=== PATIENT | male | born 1950 | race Caucasian/White ===

== ENCOUNTER 2016-06-28 11:14 | Inpatient (IN) | payer MEDICARE, BC ==
--- NOTE | ~2016-06-28 | DS ---
Discharge Summary [facility] [address] [place]. [address] NAME: WOODROW LOVETT : 46 STATUS : DIS IN PAT#: [id number] AGE: 65 ADM/REG DATE : 06/29/16 MR#: [id number] REPORT SERV DATE: 07/02/16 DICTATED BY: CHACHO PERRY DATE: 07/01/16 REPORT STATUS : Draft TRANSCRIBED BY: ROSINA DATE: 07/01/16 ADMISSION DATE: 06/29/2016 DISCHARGE DATE: 07/01/2016 DISCHARGE DIAGNOSES: 1. High-grade AV block status post pacemaker. 2. Hypertension. 3. Hyperlipidemia. 4. History of prostate cancer. 5. Rosacea. HOME MEDICATIONS: 1. Norvasc 10 mg p.o. daily. 2. Zetia 10 mg p.o. at bedtime. 3. Singulair 10 mg p.o. daily. 4. Prilosec 40 mg p.o. at bedtime. 5. Lisinopril 10 mg p.o. daily. 6. Magnesium p.o. daily. 7. Protandim p.o. daily. 8. Ibuprofen 400 mg p.o. b.i.d. p.r.n. 9. Tylenol 500 mg p.o. b.i.d. p.r.n. 10.Flonase spray nasally p.r.n. 11.Probiotic capsule at bedtime. 12.Minocycline 50 mg p.o. daily. 13.Bionect Foam 0.2% apply topically daily p.r.n. DISPOSITION AND FOLLOWUP: The patient medically stable for discharge. Follow up with primary care physician in one week. Follow up with Cardiology as directed. HISTORY AND PHYSICAL: Per initial assessment. Discharge Vitals: Temperature 98.8, heart rate 63, blood pressure 128/78, respiratory rate 20, and O2 saturation 98 on room air. DISCHARGE LABS: WBC of 8, hemoglobin 15.5, hematocrit 44.1, and platelets 198. Sodium 139, potassium 4.3, chloride 106, bicarb 24, BUN 13, creatinine 0.78, and glucose 95. TSH 1.04. IMAGING: CT of the head without contrast. Impression: Negative noncontrast CT of the brain. Chest x-ray. Impression: One pacing device in place with no acute process demonstrated radiographically. Echocardiogram. Impression: Normal left ventricle systolic function with an estimated ejection fraction of 60%. Mild diastolic dysfunction. Right ventricle is mildly enlarged with normal systolic function. Mild pulmonary hypertension. Trace late diastolic MR/TR positive suggestive of AV dyssynchrony. Septal bounce suggestive of interventricular Discharge Summary [place] [id number] [place]. [address] NAME: WOODROW LOVETT : 48 STATUS : DIS IN PAT#: [id number] AGE: 65 ADM/REG DATE : 06/29/16 MR#: [id number] REPORT SERV DATE: 07/02/16 DICTATED BY: CHACHO PERRY DATE: 07/01/16 REPORT STATUS : Draft TRANSCRIBED BY: ROSINA DATE: 07/01/16 conduction delay. No wall motion abnormalities. No pericardial effusion. No evidence of pleural effusion. Hypermobile interatrial septum. HOSPITAL COURSE: This is a 65-year-old man with past medical history of hypertension and hyperlipidemia, comes into the ED complaining of dizziness. The patient was noticed to have significant bradycardia in the emergency room. The patient was admitted for further evaluation. Cardiology was consulted. The patient was noted to have high-grade AV block. The patient did have echo as described above. More details per Cardiology consult note and procedure. The patient did have a pacemaker placed without any complications. Responded well. On day of discharge, no evidence of pneumothorax. Chest x-ray, as described above. The patient medically stable for discharge. Vitals stable. The patient will be placed on Norvasc for blood pressure control with his JERAMIE inhibitor. Followup with primary care physician to recheck BP. Further management as an outpatient. Follow up with Cardiology as directed. Total time for DC planning 35 minutes. NOMI/ROSINA Martine Stewart MD / [id number] CC: MD Oscar Collins M.D.
--- NOTE | ~2016-06-28 | CN ---
Consultation Report [facility] [address] [place]. 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 On the EKG, he has AV dissociation with junctional escape rhythm and right bundle branch block pattern. Presently, he has PAC bigeminy with a minute ventricular rate of 45 per minute. He has no history of true syncope and has no TIA or stroke symptoms. He denies any chest pain, PND, or orthopnea. There are no historical events of TIA or stroke. He has a family history of hypertension and hypercholesterolemia. MEDICATIONS: At home have included Zetia for hypercholesterolemia, minocycline for rosacea, Nexium, Singulair for some allergy issues, and lisinopril for hypertension. He is not known to be diabetic. PREVIOUS OPERATIONS: Include his prostate cancer with prostatectomy by Dr. Keith and 2 hernia repairs. This gentleman is single now and has 2 sons one of whom has Crohn disease and the other one has Peter's syndrome who lives with his mother. At the present time, he is comfortable having no chest pain or shortness of breath. He had been told at one time that he had a heart murmur but does not recall ever having had an echocardiogram. Thyroid function tests are pending. LABORATORY DATA: So far includes white blood cell count 10,000, hematocrit 48%, and platelet count 259,000. BUN 16, creatinine 1.15, and blood sugar 141 mg percent. Troponin is 0.02. Chest x-ray was read as unremarkable in the emergency room. PHYSICAL EXAMINATION: VITAL SIGNS: The blood pressure 160/65 tonight but higher earlier. HEENT: Head is normocephalic. Eyes are PERRLA. Nose had no epistaxis. SKIN: Clear of ulcerations. NECK: Supple. CHEST: Clear. Good breath sounds. Absence of rales, rhonchi, or wheezes. HEART: Had regular slow rate with PAC bigeminy on the monitor. There is a grade 1 to 2 over 6 systolic murmur heard best at the left sternal border but also heard at the base. No diastolic murmurs are appreciated. There is no S3 gallop. I hear no pericardial rub. ABDOMEN: Benign and nontender. No hepatosplenomegaly or abnormal masses. EXTREMITIES: Had no clubbing, edema, or cyanosis. Pulses in the extremities are intact. NEUROLOGIC: Intact. He is oriented to time, place, and person. Consultation Report [place] [id number] [facility] [place]. [address] NAME: WOODROW LOVETT : 46 STATUS : ADM Ozzy PAT#: [id number] AGE: 65 ADM/REG DATE : 06/28/16 MR#: [id number] REPORT SERV DATE: 06/29/16 DICTATED BY: ZACARIAS CERVANTES DATE: 06/28/16 REPORT STATUS : Draft TRANSCRIBED BY: ROSINA DATE: 06/28/16 IMPRESSION: 1. Dizziness-has some orthostatic features but blood pressure is high here in the emergency room. I suspect secondary to #2. 2. Atrioventricular dissociation with junctional escape rhythm in a right bundle branch block pattern; now with PAC bigeminy with overall ventricular bradycardia at 45 beats per minute-presently asymptomatic. 3. Systolic murmur. 4. History of prostate cancer. 5. Hypertension. 6. History of hyperlipoproteinemia. 7. History of rosacea. RECOMMENDATIONS: 1. Blood pressure control. 2. We will check an echocardiogram. 3. Thyroid function tests. 4. We will continue to monitor him to see if he might be a candidate for pacing. RB/ROSINA Zacarias Cervantes M.D. / [id number] CC: Keron Ayala Jr, MD
--- NOTE | ~2016-06-28 | HP ---
History And Physical [place] [id number] [facility] [place]. [address] NAME: WOODROW LOVETT : 46 STATUS : ADM Ozzy PAT#: [id number] AGE: 65 ADM/REG DATE : 06/28/16 MR#: [id number] REPORT SERV DATE: 06/29/16 DICTATED BY: DENISSE CROWLEY DATE: 06/28/16 REPORT STATUS : Draft TRANSCRIBED BY: ROSINA DATE: 06/28/16 DATE OF ADMISSION: 06/28/2016 CHIEF COMPLAINT: Dizziness. HISTORY OF PRESENT ILLNESS: This is a 65 years old male with a past medical history of hypertension and hyperlipidemia, who states over the past three to five days, has had intermittent achiness. He denies any vertigo. However today, his dizziness had progressed while he was at work. He denied any chest pain. No shortness of breath. No nausea or vomiting. No diarrhea. No constipation. He does suffer from some nasal congestion and currently has been placed on Flonase and Singulair, which is slightly new, recommended by primary care physician. The patient states he exercises daily with jessa chi for about 30 minutes a day and also ambulates daily for exercise. He had moderate intake for fluid intake. He denies any subjective fever or chills. No cough. No shortness of breath. Was seen in the ER by Dr. Muro, who ordered a CT of the brain that was nondiagnostic, and also called the hospitalist to admit the patient into the hospital. Also, the patient was found to have some sinus bradycardia while in the ER in the upper 30s to 50. The patient states that he does have chronic bradycardia, but mostly 50 to 60 usually at his primary care's office. The patient states that he recently restarted his minocycline for his rosacea treatment and later developed dizziness. REVIEW OF SYSTEMS: Please see HPI. PAST MEDICAL HISTORY: Hypertension, prostate cancer status post prostatectomy, hyperlipidemia, rosacea, and GERD. PAST SURGICAL HISTORY: Bilateral inguinal hernia, tonsillectomy, prostatectomy, and skin cancer removal. FAMILY HISTORY: Father with prostate cancer. Mother with skin cancer. Hypertension. SOCIAL HISTORY: Quit tobacco abuse 35 to 40 years ago. Smoked for approximately seven-pack history. Drinks one glass of wine a day. No illicit drugs. Very active. Exercises daily. 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 ALLERGIES: ERYTHROMYCIN AND MUSHROOMS. HOME MEDICATIONS: Tylenol p.r.n., Zetia 10 mg p.o. q.h.s., Flonase daily, ibuprofen p.r.n., lisinopril 10 mg p.o. daily, minocycline 50 mg p.o. daily, probiotic p.o. daily, Prilosec 40 mg p.o. q.h.s., Singulair 10 mg p.o. q.h.s., magnesium one tab p.o. daily, Protandim herbal one cap p.o. daily, and Bionect topical p.r.n. PHYSICAL EXAMINATION: VITAL SIGNS: Initial temp of 97.8; initial blood pressure was 184/83, currently 149/62; initial pulse per nurse ranging 35 to 50, but currently, ranging 48 to 52, respirations of History And Physical [address] [address] NAME: WOODROW LOVETT : 46 STATUS : ADM Ozzy PAT#: [id number] AGE: 65 ADM/REG DATE : 06/28/16 MR#: [id number] REPORT SERV DATE: 06/29/16 DICTATED BY: DENISSE CROWLEY DATE: 06/28/16 REPORT STATUS : Draft TRANSCRIBED BY: ROSINA DATE: 06/28/16 15, saturating 100% on room air. GENERAL: The patient is alert and oriented x3, but in no distress, very pleasant, well nourished, lean. HEENT: Pupils equal, round, and reactive to light. Extraocular muscles are intact. Moist mucous membranes. Anicteric sclerae. CARDIOVASCULAR: S1, S2. Bradycardic. No appreciated rubs or gallops. RESPIRATORY: Clear to auscultation bilaterally. No wheezes or crackles. No signs of tachypnea. ABDOMEN: Positive bowel sounds. Soft, nontender. No rebound. No fluid wave. No distention. EXTREMITIES: 2+ pulse bilaterally. No edema. NEURO: Cranial nerves 2 through 12 grossly intact. Moves all four extremities. No neuro focal deficits. EKG: Sinus bradycardia with a ventricular rate of 51 with PVC and first-degree AV block. LABORATORY DATA: Sodium 137, potassium 3.9 with a chloride of 103, bicarb of 21, BUN of 16, creatinine of 1.15 elevated from baseline with a baseline of 0.6 to 0.8, glucose of 141, magnesium 1.9. White count of 10, hemoglobin of 16.9 with a platelet count 259. UA negative. INR 1.1. ASSESSMENT AND PLAN: 1. Sinus bradycardia with dizziness. 2. Mild acute kidney injury with mild hypovolemia. 3. Hypertension. We will admit under observation. Cardiology has already been consulted to assist with the patient's care. We will check a TSH. Also, the patient may benefit from an outpatient sleep study if needed to rule out any underlying sleep apnea. However, we will await Cardiology recommendations an evaluation. Also, we will give low-dose IV fluids for mild hypovolemia and also blood pressure management. This patient will be followed by my colleague with the Hospitalist Service starting tomorrow, 06/29/2016. TAWANA/MODL Denisse Crowley M.D. / [id number] CC: Keron Ayala Jr, MD Richard Forrest Sowell, M.D.
--- NOTE | ~2016-06-28 | CN ---
Consultation Report [facility] [address] [place]. [address] NAME: CHAD NIÑO : 46 STATUS : ADM IN PAT#: [id number] AGE: 65 ADM/REG DATE : 06/29/16 MR#: [id number] REPORT SERV DATE: 06/30/16 DICTATED BY: DA PEDERSON DATE: 06/30/16 REPORT STATUS : Draft TRANSCRIBED BY: MODL DATE: 06/30/16 ELECTROPHYSIOLOGY CONSULTATION DATE OF CONSULTATION: 06/30/2016 INDICATIONS: Symptomatic second-degree AV block. HISTORY OF PRESENT ILLNESS: Mr. Chad Niño is a very pleasant, 65-year-old male, who was admitted through the emergency room on 06/28/2016. He presented there with dizziness, elevated blood pressure, and bradycardia. That evening, he had an ECG that demonstrated 2:1 AV block. He was seen by Cardiology. He has had telemetry that demonstrates 2:1 AV block. Echocardiogram is obtained that shows normal LV systolic function without significant heart valve disease. Electrophysiology is consulted for consideration of pacemaker patient is on no AV francisco active medications. He has not had adri syncope. No orthopnea, PND, or chest pain. PAST MEDICAL HISTORY: Hypercholesterolemia, hypertension, rosacea, and history of prostatectomy. HOME MEDICATIONS: Zetia, Tylenol, Flonase, Advil, Prinivil, minocycline, Singulair, Prilosec, and magnesium. ALLERGIES: ERYTHROMYCIN AND MUSHROOMS, BOTH WHICH CAUSE DIARRHEA. SOCIAL HISTORY: Single. No smoking but he has smoked in the past. Former contractor. REVIEW OF SYSTEMS: As per the HPI. Otherwise, all review of systems negative. Chest x-ray from the ER report is no acute process. Electrocardiogram is sinus rhythm with 2:1 AV block with a right bundle-branch block pattern. PHYSICAL EXAMINATION: VITAL SIGNS: Blood pressure 116/61, temperature 98.0, heart rates between 34 and 45, and respiratory rate is 18. GENERAL: Appears stated age, no distress. EYES: Sclerae anicteric, no arcus senilis. MOUTH: Oral mucosa moist, lips acyanotic. NECK: Jugular venous pressure normal, no carotid bruits. LUNGS: Clear to auscultation bilaterally, normal inspiratory effort. CARDIAC: Regular rhythm, bradycardic. 2/6 systolic ejection murmurs. No gallops or rubs. ABDOMEN: Soft, nondistended, nontender. Consultation Report [facility] [address] [place]. [address] NAME: CHAD NIÑO : 46 STATUS : ADM IN PAT#: [id number] AGE: 65 ADM/REG DATE : 06/29/16 MR#: [id number] REPORT SERV DATE: 06/30/16 DICTATED BY: DA PEDERSON DATE: 06/30/16 REPORT STATUS : Draft TRANSCRIBED BY: MODAbdirizak DATE: 06/30/16 EXTREMITIES: No edema. SKIN: Warm and dry. NEURO/PSYCH: Alert and oriented, nonfocal, mood appropriate. LABORATORY DATA: Sodium is 141, potassium 4.2, creatinine 0.85, hemoglobin 16, white count 10, platelets 259, and TSH 1.04. IMPRESSION: 1. Symptomatic second-degree AV block. 2. Hypertension. 3. Murmur without significant valvular disease. RECOMMENDATIONS: Plan to proceed with implantation of a dual-chamber pacemaker. I have discussed with the patient the rationale, logistics, and risks of the procedure. Risks include, but not limited to bleeding, infection, vascular complications failure to place the lead, lead dislodgement, pneumothorax. All questions were answered. The patient wished to proceed. NADEGE/ROSINA Da Pederson M.D. / [id number] CC: MD Oscar Collins M.D.
[~2016-06-28 11:14] MED LIST: ACET500CAP PO; CIALIS2.5 MG PO; FLOMAX4 PO; MINOCIN50 PO; MULTIVITAMI1 PO; NEXIUM40 PO; PRIN10 PO; SINGULAIR1 PO; ZETIA PO; ZYRTEC ALLGY10 MG PO
[2016-06-28 11:38] LABS: BASOPHILS 0.2 %; BASOPHILS ABSOLUTE 0.02 10/3/uL (0.0-0.16); EOSINOPHILS 0.2 %; EOSINOPHILS ABSOLUTE 0.02 10/3/uL (0.0-0.53); HEMOGLOBIN 16.9 g/dL (13.6-17.8); IMMATURE GRANULOCYTES 0.2 %; IMMATURE GRANULOCYTES ABSOLUTE 0.02 10/3/uL (0.0-0.11); LYMPHOCYTES 13.4 %; LYMPHOCYTES ABSOLUTE 1.34 10/3/uL (0.67-4.30); MEAN CORPUSCULAR HEMOGLOB 33.6 pg (26.0-34.0); MEAN CORPUSCULAR VOLUME 95.4 fL (80-100); MEAN PLATELET VOLUME 9.6 fL (9.2-13.0); MONOCYTES 4.9 %; MONOCYTES ABSOLUTE 0.49 10/3/uL (0.21-1.20); NEUTROPHILS 81.1 %; PLATELET COUNT 259 10/3/uL (150-400); RBC DISTRIBUTION WIDTH 12.7 % (12.0-16.0); RED CELL COUNT 5.03 10/6/uL (4.7-6.1)
[2016-06-28 11:39] LABS: ER CBC TAT 0 Hrs 08 Mins; MANUAL DIFF NO %; MEAN CORPUS HGB CONC 35.2 g/dL (32.0-36.0)
[2016-06-28 11:44] LABS: INTERNATIONAL NORMAL RATI 1.1 UNITS (-); PARTIAL THROMBO TIME 26.9 SEC (22.5-37.2)
[2016-06-28 11:57] LABS: BUN (BLOOD UREA NITROGEN) 16 MG/DL (6-23); CALCIUM, SERUM 9.7 MG/DL (8.5-10.4); CHEST PAIN PROFILE TAT 0 Hrs 26 Mins; CHLORIDE, SERUM 103 MMOL/L (96-112); CREATININE 1.15 MG/DL (0.70-1.30); GFR AFRICAN AMERICAN 76 ML/MIN (>=60); GFR NON AFRICAN AMERICAN 65 ML/MIN (>=60); POTASSIUM, SERUM 3.9 MMOL/L (3.5-5.3); SODIUM, SERUM 137 MMOL/L (135-148); TROPONIN I 0.02 NG/ML (<0.05)
[2016-06-28 12:01] LABS: CO2 (CARBON DIOXIDE) 21 MMOL/L (24-34); GLUCOSE, SERUM 141 MG/DL (60-99)
[2016-06-28 12:47] LABS: ASCORBIC ACID (UR NOT ORDER) NEG (NEG); BILIRUBIN, URINE NEGATIVE (NEG); ER URINALYSIS TAT 0 Hrs 08 Mins; KETONE, URINE 20 MG/DL (NEG); LEUKOCYTE ESTERASE(NOT OR NEG (NEG); NITRITE (URINE) NEG (NEG); WBC (NOT ORDERED) (RFLEX) < 1 (0-5)
[2016-06-28] MEDS ORDERED: PRIN10 PO (13:10)
[2016-06-28] MEDS ORDERED: SINGULAIR1 PO (13:10)
[2016-06-28] MEDS ORDERED: ZETIA PO (13:12)
[2016-06-28] MEDS ORDERED: [UNRECOGNIZED DRUG - OTHER] PO (13:12)
[2016-06-28] MEDS ORDERED: PROTANDIM PO (13:13)
[2016-06-28] MEDS ORDERED: MAGNESIUM PO (13:13)
[2016-06-28] MEDS ORDERED: ACET500CAP PO (13:14)
[2016-06-28] MEDS ORDERED: ADVIL PO (13:14)
[2016-06-28] MEDS ORDERED: FLONASE NAS (13:15)
[2016-06-28] MEDS ORDERED: PRILOSEC40 MG PO (13:15)
[2016-06-28] MEDS ORDERED: PROBIOTIC PO (13:17)
[2016-06-28] MEDS ORDERED: METROGEL 0.75% TOP (13:21)
[2016-06-28] MEDS ORDERED: DYNACIN50 MG PO (13:40)
[2016-06-28] MEDS ORDERED: BIONECT TOP (13:40)
[2016-06-29 03:52] LABS: CALCIUM, SERUM 8.8 MG/DL (8.5-10.4); CHLORIDE, SERUM 110 MMOL/L (96-112); CO2 (CARBON DIOXIDE) 24 MMOL/L (24-34); CREATININE 0.85 MG/DL (0.70-1.30); GFR AFRICAN AMERICAN 104 ML/MIN (>=60); GFR NON AFRICAN AMERICAN 90 ML/MIN (>=60); POTASSIUM, SERUM 4.2 MMOL/L (3.5-5.3); SODIUM, SERUM 141 MMOL/L (135-148)
[2016-06-29 04:01] LABS: BUN (BLOOD UREA NITROGEN) 11 MG/DL (6-23); GLUCOSE, SERUM 106 MG/DL (60-99)
[2016-07-01 05:10] LABS: BASOPHILS 0.1 %; BASOPHILS ABSOLUTE 0.01 10/3/uL (0.0-0.16); EOSINOPHILS 0.6 %; EOSINOPHILS ABSOLUTE 0.05 10/3/uL (0.0-0.53); HEMATOCRIT 44.1 % (40.0-51.0); HEMOGLOBIN 15.5 g/dL (13.6-17.8); IMMATURE GRANULOCYTES 0.1 %; IMMATURE GRANULOCYTES ABSOLUTE 0.01 10/3/uL (0.0-0.11); LYMPHOCYTES 21.7 %; LYMPHOCYTES ABSOLUTE 1.74 10/3/uL (0.67-4.30); MEAN CORPUS HGB CONC 35.1 g/dL (32.0-36.0); MEAN CORPUSCULAR VOLUME 96.7 fL (80-100); MEAN PLATELET VOLUME 9.6 fL (9.2-13.0); MONOCYTES 8.6 %; MONOCYTES ABSOLUTE 0.69 10/3/uL (0.21-1.20); NEUTROPHILS 68.9 %; NEUTROPHILS ABSOLUTE 5.51 10/3/uL (2.02-8.40); PLATELET COUNT 198 10/3/uL (150-400); RBC DISTRIBUTION WIDTH 12.7 % (12.0-16.0); RED CELL COUNT 4.56 10/6/uL (4.7-6.1)
[2016-07-01 05:12] LABS: MANUAL DIFF NO %
[2016-07-01 05:22] LABS: BUN (BLOOD UREA NITROGEN) 13 MG/DL (6-23); CALCIUM, SERUM 8.6 MG/DL (8.5-10.4); CHLORIDE, SERUM 106 MMOL/L (96-112); CO2 (CARBON DIOXIDE) 24 MMOL/L (24-34); CREATININE 0.78 MG/DL (0.70-1.30); GFR AFRICAN AMERICAN 108 ML/MIN (>=60); GFR NON AFRICAN AMERICAN 93 ML/MIN (>=60); GLUCOSE, SERUM 95 MG/DL (60-99); POTASSIUM, SERUM 4.3 MMOL/L (3.5-5.3); SODIUM, SERUM 139 MMOL/L (135-148)
[2016-07-01] MEDS ORDERED: NORV10 PO (11:44)
[2016-07-01] MEDS ORDERED: ULTRAM50 PO (11:49)
== END 2016-07-01 14:05 | disposition home or self-care (01) | DRG 244 ==
LOC: ER 11:14 → CDU1 19:46
PROVIDERS: Emergency Medicine; Hospitalist; Internal Medicine
PROC: 0JH606Z Insertion of Pacemaker, Dual Chamber into Chest Subcutaneous Tissue and Fascia, Open Approach (ICD-10-PCS; principal; 2016-06-30)
PROC: 02HK3JZ Insertion of Pacemaker Lead into Right Ventricle, Percutaneous Approach (ICD-10-PCS; 2016-06-30)
PROC: 02H63JZ Insertion of Pacemaker Lead into Right Atrium, Percutaneous Approach (ICD-10-PCS; 2016-06-30)
DX: I44.1 Atrioventricular block, second degree (principal); I27.2 Other secondary pulmonary hypertension; I11.9 Hypertensive heart disease without heart failure; E86.1 Hypovolemia; E78.5 Hyperlipidemia, unspecified; L71.9 Rosacea, unspecified; I49.3 Ventricular premature depolarization; I44.0 Atrioventricular block, first degree; I45.10 Unspecified right bundle-branch block; I49.1 Atrial premature depolarization; Z88.1 Allergy status to other antibiotic agents; Z87.891 Personal history of nicotine dependence; Z82.49 Family history of ischemic heart disease and other diseases of the circulatory system; Z85.828 Personal history of other malignant neoplasm of skin; Z85.46 Personal history of malignant neoplasm of prostate; Z90.79 Acquired absence of other genital organ(s); E78.00 Pure hypercholesterolemia, unspecified; Z91.018 Allergy to other foods
CPT/HCPCS: 33208; 70450; 71010; 80048; 81001; 82962; 83735; 84443; 84484; 85025; 85610; 85730; 93005; 93306; 99285; A9270-GY; C1785; C1892; C1898; J0690; Q9967